=== PATIENT | female | born 2000 | race Caucasian/White ===

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

== ENCOUNTER → 2021-01-09 08:39 | Outpatient (CLI) | payer OTHER, SELFPAY | PROVIDERS: PCP Pediatrics; Referring Provider Otolaryngology; Visit Provider Otolaryngology | DX: Z03.818 Encounter for observation for suspected exposure to other biological agents ruled out (principal); Z11.59 Encounter for screening for other viral diseases | CPT/HCPCS: 87635; C9803; U0005; U0003 ==

== ENCOUNTER → 2021-01-12 | Outpatient (CLI) | payer OTHER, SELFPAY ==
--- NOTE | 2021-01-12 11:45 | TONS_PTH ---
PATIENT: GAYLE MAGANA LOC: [facility] U#:[id number] AGE/SX: 20/F ROOM: RE01/12/[address]: Dr. Lamin Nino MD : [id number] BED: DIS: 01/12/2021 SPEC #: [id number] RECD: 01/12/21 15:14 STATUS: MOUSTAPHA JENSENAlejandro #: [id number] NOBLE: 01/12/21 11:[address]: Lamin Nino DEPT: SURGICAL PATHOLOGY RECD BY: Daniela Gill ENTERED: 01/13/21 13:04 SP TYPE: TONSILS OTHR DR: Dr. Rika Kraus MD [facility] Tissues: Tonsil, NOS Procedures: Surgery Specimen Level III HEADER OPERATION: Tonsillectomy PRE-OP DIAGNOSIS: Recurrent tonsillitis TISSUE SUBMITTED: Bilateral tonsils, pin on right MICROSCOPIC DIAGNOSIS Bilateral tonsils, tonsillectomy: Reactive lymphoid hyperplasia, consistent with chronic tonsillitis. SJ:asher 01/14/2021 MICROSCOPIC DESCRIPTION Slides are reviewed. GROSS DESCRIPTION Received is one container labeled with the patient's name and designated tonsils - pin on right are two tonsils that in aggregate weigh 12.3 gm. The right tonsil has a pin on it and measures 3 x 2.5 x 1.5 cm. The left tonsil measures 3.5 x 2.5 x 1.5 cm. Both tonsils are similar in appearance. The external surfaces are pink-metz, smooth, glistening and somewhat lobulated. Focally they are hemorrhagic, granular and bear cautery artifact. Serial cross sections through the tonsils reveal normal tonsillar architecture. Sections are submitted in two cassettes as follows: 1 - right tonsil, 2 - left tonsil. / Elizabeth 01/13/21 TC:3 [facility]: [id number] x2
== END | disposition home or self-care (01) ==
LOC: LABSPEC 15:45
PROVIDERS: PCP Pediatrics; Referring Provider Otolaryngology; Visit Provider Otolaryngology
DX: J03.91 Acute recurrent tonsillitis, unspecified (principal)
CPT/HCPCS: 88304